=== PATIENT | male | born 1995 | race Hispanic/Latino ===

== ENCOUNTER 2024-02-01 06:58 | Observation (INO) | payer BC, SELFPAY ==
--- NOTE | 2024-02-01 08:01 | RAD REPORT ---
EXAM DESCRIPTION: CT - Thorax W/ Con CLINICAL HISTORY: Chest pain TRAUMA COMPARISON: No comparisons FINDINGS: The lungs are clear. No pleural thickening or pleural effusion. No pneumothorax. No axillary, mediastinal or hilar adenopathy. There is slight lucency in widening of the left first rib costosternal junction relative to the right this could indicate traumatic injury to this location. There is a thin transverse lucency seen invol ving the inferior sternal body (image 91/99) compatible with a nondisplaced fracture. Hepatic steatosis. All CT scans are performed using dose optimization technique as appropriate and may include automated exposure control or mA/KV adjustment according to patient size. IMPRESSION: Transverse nondisplaced fracture of the inferior body of the sternum. Slight widening with vertical lucency at the left first costovertebral junction may likely trauma rel ated injury.
--- NOTE | 2024-02-01 09:25 | EDPHYS ---
Physician Documentation [facility] Name: Erick Ryan Jr Age: 28 yrs Sex: Male : 1995 Arrival Date: 02/01/2024 Time: 06:58 Bed 13 Private MD: ED Physician Shaheed Dick HPI: 01/31 07:40 This 28 yrs old Male presents to ER via Ambulatory with complaints of rt Dizziness, Shortness Of Breath. 07:40 Patient presents to the ED with pain following chest trauma. Patient states that he was rt bench pressing and he dropped the bar which weighed about 300 pounds onto his chest. repPorts pain with deep inspiration, and mild shortness of breath. Denies other injuries, acute complaints, symptoms are moderate in severity, no other aggravating or alleviating factors.. Historical: - Allergies: 07:20 No Known Allergies; vc1 - Home Meds: 07:20 None [Active]; vc1 - PMHx: 07:20 None; vc1 - Immunization history:: Adult Immunizations up to date. - Infectious Disease History:: Denies. - Social history:: Smoking status: Patient denies any tobacco usage or history of. - Family history:: not pertinent. ROS: 07:40 Constitutional: Negative for fever, chills, and weight loss, Abdomen/GI: Negative for rt abdominal pain, nausea, vomiting, diarrhea, and constipation, MS/Extremity: Negative for injury and deformity, Skin: Negative for injury, rash, and discoloration, Neuro: Negative for headache, weakness, numbness, tingling, and seizure, 07:40 Cardiovascular: Positive for chest pain, Negative for edema, 07:40 Respiratory: Positive for shortness of breath, Negative for cough, Exam: 07:40 Constitutional: This is a well developed, well nourished patient who is awake, alert, rt and in no acute distress. Head/Face: Normocephalic, atraumatic. Cardiovascular: Regular rate and rhythm with a normal S1 and S2. No gallops, murmurs, or rubs. Normal PMI, no JVD. No pulse deficits. Respiratory: Lungs have equal breath sounds bilaterally, clear to auscultation and percussion. No rales, rhonchi or wheezes noted. No increased work of breathing, no retractions or nasal flaring. Skin: Warm, dry with normal turgor. Normal color with no rashes, no lesions, and no evidence of cellulitis. MS/ Extremity: Pulses equal, no cyanosis. Neurovascular intact. Full, normal range of motion. Neuro: Awake and alert, GCS 15, oriented to person, place, time, and situation. Cranial nerves II-XII grossly intact. Motor strength 5/5 in all extremities. Sensory grossly intact. Cerebellar exam normal. Normal gait. 07:40 Chest/axilla: Tenderness without bruising to the anterior chest wall, no crepitus. 07:40 Abdomen/GI: No abdominal tenderness, distention, 08:26 ECG was reviewed by the Attending Physician. rt 14:50 ECG was reviewed by the Attending Physician. rt Vital Signs: 07:18 BP 143 / 89; Pulse 100; Resp 16; Temp 97.5; Pulse Ox 100% ; Weight 127.01 kg; Height 5 vc1 ft. 8 in. ; 07:40 BP 143 / 89; Pulse 77; Resp 18; Temp 98; Pulse Ox 98% on R/A; Weight 127.01 kg; Height ar6 5 ft. 8 in. ; Pain 6/10; 09:34 BP 148 / 78; Pulse 82; Resp 20; Pulse Ox 100% on R/A; ar6 07:40 Body Mass Index 42.57 (127.01 kg, 172.72 cm) ar6 07:40 Pain Scale: Adult ar6 MDM: 07:21 Patient medically screened. rt 11:28 Differential diagnosis: Sternal fracture, blunt cardiac injury, contusion. Data rt reviewed: vital signs, nurses notes, lab test result(s), radiologic studies. Consideration of Admission/Observation Escalation of care including admission/observation considered. Consideration of Admission/Observation Patient was admitted/placed on observation. Escalation of care including admission/observation considered. Management of patient was discussed with the following: Primary Care Provider: Discussed with cardiology, general surgery. Independent interpretation of the following test(s) in the Emergency Department CT Scan: My interpretation is Sternal fracture syndrome interpretation of CT scan images. Counseling: I had a detailed discussion with the patient and/or guardian regarding the historical points, exam findings, and any diagnostic results supporting the discharge/admit diagnosis, lab results, radiology results, the need for further work-up and treatment in the hospital. Response to treatment: the patient's symptoms have mildly improved after treatment. 01/31 08:08 Order name: Troponin High Sensitivity; Complete Time: 09:01 rt 01/31 09:16 Order name: CBC with Diff; Complete Time: 10:06 rt 01/31 09:16 Order name: CMP; Complete Time: 10:06 rt 01/31 10:11 Order name: CBC with Automated Diff EDMS 01/31 10:11 Order name: CBC with Automated Diff EDMS 01/31 10:11 Order name: Comprehensive Metabolic Panel EDMS 01/31 10:11 Order name: Comprehensive Metabolic Panel EDMS 01/31 10:11 Order name: Lipid Profile EDMS 01/31 10:11 Order name: Lipid Profile EDMS 01/31 10:11 Order name: Magnesium EDMS 01/31 10:11 Order name: Magnesium EDMS 01/31 10:11 Order name: Troponin High Sensitivity EDMS 01/31 10:11 Order name: Troponin High Sensitivity EDMS 01/31 10:11 Order name: Troponin High Sensitivity EDMS 01/31 10:11 Order name: Troponin High Sensitivity EDMS 01/31 07:26 Order name: CT Chest W/ Con; Complete Time: 08:03 rt 01/31 08:08 Order name: INCENTIVE SPIROMETRY rt 01/31 08:08 Order name: EKG; Complete Time: 08:08 rt 01/31 10:11 Order name: CONS Physician Consult EDMS 01/31 10:11 Order name: CONS Physician Consult EDMS 01/31 10:11 Order name: EKG Electrocardiogram EDMS 01/31 10:11 Order name: EKG Electrocardiogram EDWI 01/31 10:11 Order name: EKG Electrocardiogram; Complete Time: 13:20 EDMS 01/31 08:08 Order name: EKG - Nurse/Tech; Complete Time: 08:17 rt EC:26 Rate is 84 beats/min. Rhythm is regular, Normal Sinus Rhythm with No ectopy. QRS [place] rt is Normal. PA interval is normal. QRS interval is normal. QT interval is normal. No Q waves. T waves are Normal. No ST changes noted. Interpreted by me. 14:50 Rate is 92 beats/min. Rhythm is regular, Normal Sinus Rhythm with No ectopy. QRS [place] rt is Normal. PA interval is normal. QRS interval is normal. QT interval is normal. No Q waves. Interpreted by me. Administered Medications: No medications were administered Disposition Summary: 02/01/24 09:24 Hospitalization Ordered Notes: Hospitalization Status: Observation rt Provider: Jose Goldman rt Condition: Stable rt Problem: new rt Symptoms: have improved rt Bed/Room Type: Standard rt Location: Intensive Care Unit(02/01/24 19:34) Room Assignment: 6-(02/01/24 19:34) Diagnosis - Blunt cardiac injury rt - Nondisplaced sternal fracture rt Forms: - Medication Reconciliation Form rt - SBAR form rt - Leadership Thank You Letter rt Critical care time excluding procedures: 14:50 Critical care time: Bedside Care: 30 minutes, Consultation: 10 minutes. Total time: 40 rt minutes Signatures: Dispatcher [employer] EDMS Yuli Rai Kimberly RN Amanda Anderson RN RN vc1 Shaheed Dick MD MD rt Corrections: (The following items were deleted from the chart) 10:16 09:24 Telemetry/MedSurg (observation) rt bd 10:16 09:24 rt bd 10:20 10:16 Intensive Care Unit bd bd 10:20 10:16 6- bd bd 10:20 10:20 bd bd 19:34 10:20 [facility] ER HOLD bd kl 19:34 10:20 ERHOLD- bd kl
--- NOTE | 2024-02-01 09:25 | ER ---
Nurse's Notes [facility] Name: Erick Ryan Jr Age: 28 yrs Sex: Male : 1995 Arrival Date: 02/01/2024 Time: 06:58 Bed 13 Private MD: Diagnosis: Blunt cardiac injury;Nondisplaced sternal fracture Presentation: 01/31 07:18 Chief complaint: Patient states: DROPPED BENCH PRESS BAR ON SELF THIS AM, \\R\\300#. vc1 Coronavirus screen: At this time, the client does not indicate any symptoms associated with coronavirus-19. Ebola Screen: No symptoms or risks identified at this time. Initial Sepsis Screen: Does the patient meet any 2 criteria? No. Patient's initial sepsis screen is negative. Does the patient have a suspected source of infection? No. Patient's initial sepsis screen is negative. Risk Assessment: Do you want to hurt yourself or someone else? Patient reports no desire to harm self or others. Onset of symptoms was February 01, 2024 at 05:00. 07:18 Method Of Arrival: Ambulatory vc1 07:18 Acuity: PATRICIA 3 vc1 Triage Assessment: 07:20 General: Appears uncomfortable, Behavior is cooperative, appropriate for age, anxious. vc1 Pain: Complains of pain in chest. EENT: No deficits noted. Neuro: No deficits noted. Cardiovascular: No deficits noted. Respiratory: Reports shortness of breath on exertion Onset: The symptoms/episode began/occurred suddenly, the patient has mild shortness of breath. GI: No signs and/or symptoms were reported involving the gastrointestinal system. : No signs and/or symptoms were reported regarding the genitourinary system. Derm: No deficits noted. Musculoskeletal: No deficits noted. Historical: - Allergies: 07:20 No Known Allergies; vc1 - Home Meds: 07:20 None [Active]; vc1 - PMHx: 07:20 None; vc1 - Immunization history:: Adult Immunizations up to date. - Infectious Disease History:: Denies. - Social history:: Smoking status: Patient denies any tobacco usage or history of. - Family history:: not pertinent. Screenin:40 [facility] ED Fall Risk Assessment (Adult) History of falling in the last 3 months, ar6 including since admission No falls in past 3 months (0 pts) Confusion or Disorientation No (0 pts) Intoxicated or Sedated No (0 pts) Impaired Gait No (0 pts) Mobility Assist Device Used No (0 pt) Altered Elimination No (0 pt) Score/Fall Risk Level 0 - 2 = Low Risk Oriented to surroundings, Maintained a safe environment, Educated pt \\T\\ family on fall prevention, incl call for assistance when getting out of bed, Hourly rounding (assess needs \\T\\ fall precautionary measures) done. Abuse screen: Denies threats or abuse. Denies injuries from another. Nutritional screening: No deficits noted. Tuberculosis screening: No symptoms or risk factors identified. Assessment: 07:40 General: Appears in no apparent distress. uncomfortable, Behavior is calm, cooperative, ar6 appropriate for age. Pain: Complains of pain in chest Pain currently is 6 out of 10 on a pain scale. Alleviated by rest, Noted to be grimacing, guarding, moaning. Neuro: Level of Consciousness is awake, alert, obeys commands, Oriented to person, place, time, situation. Cardiovascular: Capillary refill < 3 seconds Rhythm is regular. Respiratory: Airway is patent Respiratory effort is even, weak, pt. reports, "I was lifting weights and a bar fell on me. It hurts to take a deep breath in;" physician at bedside; plan of care ongoing. GI: Abdomen is round non-distended. : No signs and/or symptoms were reported regarding the genitourinary system. EENT: Oral mucosa is moist. Derm: Skin is intact, is healthy with good turgor, Skin is dry, Skin is pink, warm \\T\\ dry. Musculoskeletal: pain to sternum. Vital Signs: 07:18 BP 143 / 89; Pulse 100; Resp 16; Temp 97.5; Pulse Ox 100% ; Weight 127.01 kg; Height 5 vc1 ft. 8 in. ; 07:40 BP 143 / 89; Pulse 77; Resp 18; Temp 98; Pulse Ox 98% on R/A; Weight 127.01 kg; Height ar6 5 ft. 8 in. ; Pain 6/10; 09:34 BP 148 / 78; Pulse 82; Resp 20; Pulse Ox 100% on R/A; ar6 07:40 Body Mass Index 42.57 (127.01 kg, 172.72 cm) ar6 07:40 Pain Scale: Adult ar6 Vitals: 07:40 Cardiac Rhythm Assessment Regular. ar6 ED Course: 06:59 Patient arrived in ED. jj6 07:00 Shaheed Dick MD is Attending Physician. rt 07:20 Vicki London, RN is Primary Nurse. ar6 07:20 Triage completed. vc1 07:20 Arm band placed on. vc1 07:40 No apparent distress. Awaiting CT Scan. ar6 07:40 Patient has correct armband on for positive identification. Placed in gown. Bed in low ar6 position. Call light in reach. Side rails up X 1. Provided Education on: plan of care. Client placed on continuous cardiac and pulse oximetry monitoring. NIBP monitoring applied. Door closed. Noise minimized. Lights dimmed. Moved to private room. Warm blanket given. 07:40 No provider procedures requiring assistance completed. Inserted saline lock: 20 gauge ar6 in right antecubital area, using aseptic technique. Blood collected. Flushed with 10 mL NS. 07:52 CT Chest W/ Con In Process Unspecified. EDMS 08:12 Troponin High Sensitivity Sent. ar6 08:13 INCENTIVE SPIROMETRY Sent. ar6 09:17 Jose Goldman is Hospitalizing Provider. rt 09:43 CMP Sent. ar6 09:43 CBC with Diff Sent. ar6 10:23 Ewa Pollack FNP-C is PHCP. snw 11:33 1133 CM met with patient at the bedside in the ED exam room. Patient identified by name ane and . Demographic sheet confirmed. Patient lives with his in [facility],. He states prior to admission, he preforms ADLs independently and without physical limitations. No HH, home oxygen, DME or other medical services, and no MPOA in place at this time. Patient states he does have insurance through [employer], he just has not received his card. Patient logged into [employer] portal and presented digital card.CM presented member ID and policy number to Patient Access for verification. states his Bee, is travelling to [facility] to transport him home upon discharge. His plan is to return home upon discharge. CM team will continue to follow and coordinate care. 1142 Dr. Silva at the bedside to discuss plan of care. 12:56 Troponin High Sensitivity Sent. ar6 19:34 Sepideh Jameson, RN is Primary Nurse. al5 20:32 Patient admitted, IV remains in place. al5 Administered Medications: No medications were administered Medication: 07:40 VIS not applicable for this client. ar6 Outcome: 09:24 Decision to Hospitalize by Provider. rt 20:32 Admitted to ICU accompanied by nurse, via stretcher, room ICU 6, on monitor, with al5 chart, Other per AOC, take patient upstairs immediately and give bedside report. 20:32 Condition: stable 20:32 Instructed on the need for admit, 20:36 Patient left the ED. al5 Signatures: Dispatcher [employer] EDMS Ewa Pollack, BI MANAGER-C BI MANAGER-Csnw Dana Castro jj6 Amanda Jenkins RN RN vc1 Shaheed Dick MD MD rt Sepideh Jameson RN RN al5 Vicki London RN RN ar6 Gillian Kennedy RN RN ane Corrections: (The following items were deleted from the chart) 18:41 11:33 1133 CM met with patient at the bedside in the ED exam room. Patient identified ane by name and . Demographic sheet confirmed. Patient lives with his in [facility],. He states prior to admission, he preforms ADLs independently and without physical limitations. No HH, home oxygen, DME or other medical services, and no MPOA in place at this time. Patient states he does have insurance through [employer], he just has not received his card. Patient logged into [employer] portal and presented digital card.CM presented member ID and policy number to Patient Access for verification. states his Bee, is travelling to [facility] to transport him home upon discharge. His plan is to return home upon discharge. CM team will continue to follow and coordinate care. 1142 Dr. Silva at the bedside to discuss plan of care. ane
[2024-02-01 09:50] LABS: Absolute Basophils 0.1 K/uL (0-0.5); Absolute Eosinophils 0.1 K/uL (0-0.5); Absolute Lymphocytes (CBC) 1.2 K/uL (0.7-4.9); Absolute Monocytes 0.7 K/uL (0.1-1.3); Absolute Neutrophil 7.4 K/uL (1.8-8.0); Basophils % 0.5 % (0-1.3); Eosinophils % 0.8 % (0-4.4); Hematocrit 42.2 % (39.6-49.0); Lymphocytes % 13.1 % (15.3-44.8); MCH 30.4 pg (27.0-35.0); MCHC 33.1 g/dL (32.0-36.0); MCV 91.6 fL (80-100); MPV 9.8 fL (7.6-11.3); Monocytes % 7.7 % (3.3-12.3); Neutrophils % 77.9 % (41.7-73.7); Platelets 240 thou/uL (152-406); Red Cell Distribution Width 13.4 % (12.1-15.2)
[2024-02-01 10:05] LABS: Anion Gap 8.1 mEq/L (5.0-15.0); Bilirubin Total 0.5 mg/dL (0.2-1.0); Globulin 3.9 g/dL (2.3-3.5); Potassium 4.1 mEq/L (3.5-5.1); Protein, Total 7.9 g/dL (6.4-8.2)
--- NOTE | 2024-02-01 10:20 | P.HP ---
Certification for Inpatient Patient admitted to: Observation With expected LOS: <2 Midnights Patient will require the following post-hospital care: None Practitioner: I am a practitioner with admitting privileges, knowledge of patient current condition, hospital course, and medical plan of care. Services: Services provided to patient in accordance with Admission requirements found in Title 42 Section 412.3 of the Code of Federal Regulations Patient History Date of Service: 02/01/24 Reason for admission: fx of sternum, cardiac contusion History of Present Illness: Mr. Ryan is a 28-year-old male who denies past medical history. He was bench pressing this morning (greater than 300 pound weight) when his left hand felt a little numb and he dropped the bar onto his chest. Patient states it did cause pain and a little shortness of breath but he didn't think much of it and got dressed for work. He had increased pain in his chest and transit to work so presented to the emergency department. Mr. Ryan stable vital signs, EKG, traumatic chest pain, elevated troponin. Admitted to ICU for further evaluation and treatment with consult to Dr. Silva and Dr. Delgado. Labs: Troponin 108.3 Imaging: "Transverse nondisplaced fracture of the inferior body of the sternum. Slight widening with vertical lucency at the left first costovertebral junction may likely be trauma related injury." EKG: Normal sinus rhythm at 84 without ectopy Allergies No Known Allergies Allergy (Unverified 02/01/24 10:12) Home medications list reviewed: Yes (No home medications) Home Medications: NK [No Home Meds] 02/01/24 - Past Medical/Surgical History Has patient received pneumonia vaccine in the past: No Diabetic: No Past Medical History: Patient denies medical history Past Surgical History: Patient denies surgical history Psychosocial/ Personal History: Lives at home. Independent - Family History Family History: Reviewed- Non-Contributory - Social History Smoking Status: Never smoker Alcohol use: Yes CD- Drugs: No Caffeine use: Yes Place of Residence: Home Review of Systems 10-point ROS is otherwise unremarkable General: As per HPI Cardiovascular: Chest Pain, As per HPI Physical Examination - Vital Signs Blood Pressure: 148/78 Pulse: 82 Respirations: 18 Pulse Ox (%): 100 - Physical Exam General: Alert, In no apparent distress HEENT: Atraumatic, Normocephalic Neck: Supple Respiratory: Clear to auscultation bilaterally Cardiovascular: No edema, Normal pulses, Regular rate/rhythm Capillary refill: <2 Seconds Gastrointestinal: Normal bowel sounds Musculoskeletal: No clubbing, No swelling, Other (tender over sternum and left anterior costal margins) Integumentary: No rashes, No breakdown Neurological: Normal speech, Normal tone, Normal affect Lymphatics: No axilla or inguinal lymphadenopathy External genitalia: Deferred Rectal: Deferred - Studies Laboratory Data (last 24 hrs) 02/01/24 02/01/24 09:43 09:43 WBC 9.50 Hgb 14.0 Hct 42.2 Plt Count 240 Sodium 137 Potassium 4.1 BUN 11 Creatinine 0.98 Glucose 103 Total Bilirubin 0.5 AST 30 ALT 64 H Alkaline Phosphatase 79 Assessment and Plan - Plan Assessment and plan Traumatic chest pain Elevated troponin -Admit to ICU -Consult Dr. Silva -Consult Dr. Delgado -Serial cardiac enzymes and EKGs, repeat CT -ECHO with Cardiology direction -Monitor and trend VS, pain, symptoms -Pain control -Oxygen supplementation as needed DVT ppx SCD Full code LOS 2-3 days Discharge Plan: Home Plan to discharge in: 24 Hours - Advance Directives Does patient have a Living Will: No Does patient have a Durable POA for Healthcare: No - Code Status/Comfort Care Code Status Assessed: Yes (Full)
[2024-02-01] MEDS: NA CHLORIDE 0.9% 1,000 ML IV SCH (10:39)
[2024-02-01] MEDS ORDERED: NA CHLORIDE 0.9% 1,000 ML ONE (10:40)
[2024-02-01] MEDS ORDERED: HYDROCODONE/APAP 7.5/325 MG TAB ONE (11:36)
[2024-02-01] MEDS: HYDROCODONE/APAP 7.5/325 MG TAB PO PRN (11:37)
--- NOTE | 2024-02-01 11:50 | P.CNS ---
Date of Consult: 02/01/24 Chief Complaint: fx of sternum, cardiac contusion History of Present Illness: Patient with no significant PMH presented with blunt chest trauma while he was lifting weight today, report mid central chest pain when he moves, denies SOB, no palpitations, no syncope. Allergies No Known Allergies Allergy (Unverified 02/01/24 10:12) Home medications list reviewed: Yes Home Medications: NK [No Home Meds] 02/01/24 - Past Medical/Surgical History Diabetic: No Psychosocial/ Personal History: Lives at home. Independent - Social History Alcohol use: Yes CD- Drugs: No Caffeine use: Yes Place of Residence: Home Review of Systems 10-point ROS is otherwise unremarkable Physical Examination Temp Pulse Resp BP Pulse Ox 82 20 148/78 H 99 02/01/24 10:27 02/01/24 11:37 02/01/24 10:27 02/01/24 11:37 General: Alert, In no apparent distress HEENT: Atraumatic, PERRLA, Mucous membr. moist/pink, EOMI, Sclerae nonicteric Neck: Supple, 2+ carotid pulse no bruit, No LAD, Without JVD or thyroid abnormality Respiratory: Clear to auscultation bilaterally, Normal air movement Cardiovascular: Regular rate/rhythm, Normal S1 S2 Gastrointestinal: Normal bowel sounds, No tenderness Musculoskeletal: No tenderness Integumentary: No rashes Neurological: Normal gait, Normal speech, Normal tone, Normal affect Lymphatics: No axilla or inguinal lymphadenopathy Laboratory Data (last 24 hrs) 02/01/24 02/01/24 09:43 09:43 WBC 9.50 Hgb 14.0 Hct 42.2 Plt Count 240 Sodium 137 Potassium 4.1 BUN 11 Creatinine 0.98 Glucose 103 Total Bilirubin 0.5 AST 30 ALT 64 H Alkaline Phosphatase 79 - Problems (1) Cardiac contusion Current Visit: Yes Status: Acute Plan: most likely mild with mild leak in troponin, patient is hemodynaimcally stable, CT scan did not show any displaced rib fractures. - get echo - continue to trend cardiac enzymes until peak and down trending - continue to monitor vitals closely
[2024-02-01] MEDS: IPRATROPIUM BROM 0.5MG/2.5ML NEB SCH (13:00)
[2024-02-01] MEDS ORDERED: IPRATROPIUM BROM 0.5MG/2.5ML ONE ×2 (13:02→19:32)
[2024-02-01] MEDS ORDERED: ARFORMOTEROL TARTRATE 15 MCG/2 ML VIAL.NEB ONE (19:31)
[2024-02-01] MEDS: ARFORMOTEROL TARTRATE 15 MCG/2 ML VIAL.NEB NEB SCH (19:40)
[2024-02-02 04:53] VITALS: TEMP 97.3
[2024-02-02 05:01] VITALS: BMI 40.2
[2024-02-02 05:31] LABS: Absolute Eosinophils 0.2 K/uL (0-0.5); Absolute Lymphocytes (CBC) 1.6 K/uL (0.7-4.9); Absolute Monocytes 0.8 K/uL (0.1-1.3); Basophils % 0.4 % (0-1.3); Eosinophils % 2.5 % (0-4.4); Hematocrit 38.9 % (39.6-49.0); Hemoglobin 12.9 g/dL (13.6-17.9); Lymphocytes % 24.9 % (15.3-44.8); MCH 30.6 pg (27.0-35.0); MCHC 33.2 g/dL (32.0-36.0); MCV 91.9 fL (80-100); MPV 9.9 fL (7.6-11.3); Monocytes % 12.2 % (3.3-12.3); Platelets 215 thou/uL (152-406); RBC Red Blood Cell Count 4.23 M/uL (4.33-5.43); Red Cell Distribution Width 13.2 % (12.1-15.2)
[2024-02-02 05:57] LABS: Albumin 3.4 g/dL (3.4-5.0); Albumin/Globulin Ratio 0.9 (1.1-1.8); Bilirubin Total 0.5 mg/dL (0.2-1.0); Globulin 3.6 g/dL (2.3-3.5); Magnesium 2.2 mg/dL (1.6-2.4)
[2024-02-02 06:04] LABS: Troponin High Sensitivity 98.8 pg/mL (<58.9)
--- NOTE | 2024-02-02 06:51 | ECHO ---
HEIGHT: 6 ft 0 in WEIGHT: 296 lb 12.8 oz DATE OF STUDY: 02/01/[address]: Bailey Garcia NP 2-DIMENSIONAL: YES M.MODE: YES DOPPLER: YES COLOR FLOW: YES TDS: PORTABLE: YES DEFINITY: BUBBLE STUDY: DIAGNOSIS: STERNAL FRACTURE, CHEST CONTUSION CARDIAC HISTORY: CATHERIZATION: NO SURGERY: NO PROSTHETIC VALVE: NO PACEMAKER: NO MEASUREMENTS (cm) DIASTOLIC (NORMALS) SYSTOLIC (NORMALS) IVSd 1.1 (0.6-1.2) LA Diam 3.7 (1.9-4.0) LVEF 60-65% LVIDd 5.3 (3.5-5.7) LVIDs 3.4 (2.0-3.5) %FS 36% LVPWd 1.2 (0.6-1.2) Ao Diam 3.5 (2.0-3.7) 2 DIMENSIONAL ASSESSMENT: RIGHT ATRIUM: NORMAL LEFT ATRIUM: NORMAL RIGHT VENTRICLE: NORMAL LEFT VENTRICLE: NORMAL TRICUSPID VALVE: NORMAL MITRAL VALVE: NORMAL PULMONIC VALVE: NORMAL AORTIC VALVE: NORMAL PERICARDIAL EFFUSION: NONE AORTIC ROOT: NORMAL LEFT VENTRICULAR WALL MOTION: NORMAL DOPPLER/COLOR FLOW: NORMAL COMMENTS: 1. NORMAL LEFT VENTRICULAR EJECTION FRACTION 60-65% 2. NORMAL WALL MOTION 3. NORMAL DIASTOLIC FUNCTION 4. NORMAL ECHOCARDIOGRAM TECHNOLOGIST: SARAN ANDREA
[2024-02-02 08:03] VITALS: O2SAT 96
[2024-02-02 09:30] VITALS: BP 143/92
--- NOTE | 2024-02-02 12:10 | P.DS ---
Admission Date: 02/01/24 Discharge Date: 02/02/24 Disposition: ROUTINE DISCHARGE Discharge Condition: GOOD Reason for Admission: fx of sternum, cardiac contusion Consultations: CardiologyDr. Silva Procedures: Echocardiogram Brief History of Present Illness: Mr. Ryan is a 28-year-old male who denies past medical history. He was bench pressing this morning (greater than 300 pound weight) when his left hand felt a little numb and he dropped the bar onto his chest. Hospital Course: Problem list Sternal fracture Cardiac contusion Patient was admitted to the hospital after dropping a large weight on his chest resulting in a sternal fracture. His troponin was mildly elevated but trended down. He was seen by cardiology who recommended echo be obtained which was complete and normal. Pain well controlled as long there is not much movement. Discussed sternal fracture precautions with patient, stable for discharge today and follow up with primary care in 1-2 weeks. Vital Signs/Physical Exam: Temp Pulse Resp BP Pulse Ox 97.3 F 94 H 16 143/92 H 96 02/02/24 04:00 02/02/24 08:00 02/02/24 08:00 02/02/24 08:00 02/02/24 08:00 General: Alert, In no apparent distress, Oriented x3 HEENT: Atraumatic, PERRLA, EOMI Neck: Supple, JVD not distended Respiratory: Clear to auscultation bilaterally, Normal air movement Cardiovascular: Regular rate/rhythm, Normal S1 S2 Gastrointestinal: Normal bowel sounds, No tenderness Musculoskeletal: No tenderness Integumentary: No rashes Neurological: Normal speech, Normal tone, Normal affect Lymphatics: No axilla or inguinal lymphadenopathy Laboratory Data at Discharge: WBC 6.60 thou/uL (4.3-10.9) 02/02/24 05:05 Hgb 12.9 g/dL (13.6-17.9) L 02/02/24 05:05 Hct 38.9 % (39.6-49.0) L 02/02/24 05:05 Plt Count 215 thou/uL (152-406) 02/02/24 05:05 Sodium 139 mEq/L (136-145) 02/02/24 05:05 Potassium 4.0 mEq/L (3.5-5.1) 02/02/24 05:05 BUN 11 mg/dL (7-18) 02/02/24 05:05 Creatinine 0.91 mg/dL (0.70-1.30) 02/02/24 05:05 Glucose 103 mg/dL (74-106) 02/02/24 05:05 Magnesium 2.2 mg/dL (1.6-2.4) 02/02/24 05:05 Total Bilirubin 0.5 mg/dL (0.2-1.0) 02/02/24 05:05 AST 16 U/L (15-37) 02/02/24 05:05 ALT 51 U/L (16-61) 02/02/24 05:05 Alkaline Phosphatase 73 U/L (45-117) 02/02/24 05:05 Triglycerides 135 mg/dL (<150) 02/02/24 05:05 Cholesterol 159 mg/dL (<200) 02/02/24 05:05 HDL Cholesterol 41 mg/dL (40-60) 02/02/24 05:05 Cholesterol/HDL Ratio 3.88 02/02/24 05:05 Home Medications: Hydrocodone 5/APAP 325 [[place] 5/325*] 1 tab PO Q8H PRN #10 tab 02/02/24 New Medications: Hydrocodone 5/APAP 325 [[place] 5/325*] 1 tab PO Q8H PRN #10 tab PRN Reason: Pain Physician Discharge Instructions: Follow up with a Family Medicine Physician of your choice: BLUE DILL MD [address] [facility] [facility], [address] [place], [place] [address] ACCEPTING NEW PATIENTS! LESLIE LUNA MD [address], [address] [place], [place] [address] ACCEPTING NEW PATIENTS! SAMANTHA-JOAN CARPENTER, DO [address] [place], [place] [id number] LATHA YUN MD [address], [address] [place], [place] [address] SHUN SIMON MD [address], [address] [place], [place] [id number] TOYIN SPAIN MD [address], [place] [address] [place] [address] LATESHA SYKES MD [address] [place] [address] HARVINDER CASANOVA [facility] [address], [address] [place] [address] DORINA GODINEZ MD [address], [address] [place] [address] MILES GODINEZ APRN [facility] [address], [address] [place] [address] [facility] DO RICH [address], [address] [place] [address] Follow up with an Internal Medicine Physician of your choice: LESLIE LUNA MD [address], [address] [place] [address] ACCEPTING NEW PATIENTS! YUNIOR BIRCH MD [address] [facility], [place] [address] NICK SYKES MD [address] [place] [address] CHARLENE ALVARENGA MD [address] [facility], [facility] [place] [address] CHARAN HALL MD [address] [place] [address] Diet:RegularPROBLEM: (list out Acute Problems for the Current visit) GOAL: Clear understanding of disease process INSTRUCTIONS:Patient was admitted to the hospital after dropping a large weight on his chest resulting in a sternal fracture. His troponin was mildly elevated but trended down. He was seen by cardiology who recommended echo be obtained which was complete and normal. Pain well controlled as long there is not much movement. Discussed sternal fracture precautions with patient, stable for discharge today and follow up with primary care in 1-2 weeks. Diet: Regular Activity: No lifting more than 10 lbs DME DME: Date Ordered: Name of Company: [employer] Services Needed: None Name of Company: Date or Referral: IMMUNIZATION Influenza Vaccine Indicated: Influenza Vaccine Given: Date Given: Pneumonia Vaccine Indicated: No Pneumonia Vaccine Given: Date Given: Activity:No lifting more than 10 lbs PHYSICIAN'S DISCHARGE INSTRUCTIONS Diet: Regular Activity: No lifting more than 10 lbs Followup: NONE,NONE [Primary Care Provider] - 1-2 Weeks Time spent managing pt's care (in minutes): 36
--- NOTE | 2024-02-02 16:56 | EKG ---
Test Date: 2024-02-01 Test Time: 13:16:04 Aircraft Dispatcher: MAYELA MEASUREMENT RESULTS: Intervals: Rate: 92 TX: 146 QRSD: 94 QT: 360 QTc: 445 [place]: P: 61 TX: 146 QRS: 94 T: -24 INTERPRETIVE STATEMENTS: Normal sinus rhythm Nonspecific ST and T wave abnormality Abnormal ECG Compared to ECG 02/01/2024 08:21:42 ST (T wave) deviation now present Electronically Signed On 02-02-24 16:53:14 CDT by Dre Altamirano
--- NOTE | 2024-02-02 16:57 | EKG ---
Test Date: 2024-02-01 Test Time: 08:21:42 Car Rider: SKYLAR MEASUREMENT RESULTS: Intervals: Rate: 84 VA: 146 QRSD: 92 QT: 370 QTc: 437 [place]: P: 70 VA: 146 QRS: 97 T: -9 INTERPRETIVE STATEMENTS: Normal sinus rhythm Normal ECG No previous ECG available for comparison Electronically Signed On 02-02-24 16:53:27 CDT by Dre Altamirano
== END 2024-02-02 10:30 | disposition home or self-care (01) ==
LOC: ER 06:58 → ERHOLD 10:01 → 3RD-ICU 20:12
PROVIDERS: ADMIT Internal Medicine; ATTEND Hospitalist
DX: S22.20XA Unspecified fracture of sternum, initial encounter for closed fracture (principal); S28.0XXA Crushed chest, initial encounter; R79.89 Other specified abnormal findings of blood chemistry; Y93.B3 Activity, free weights; Y92.89 Other specified places as the place of occurrence of the external cause; Y99.8 Other external cause status
CPT/HCPCS: 93005 ×2; 93306; 85025 ×2; 36415; 83735; 82550 ×2; 80061; 84484 ×4; 80053 ×2; 71260; 94640 ×4; Q9967; J7644 ×4; J7605 ×2; J7030 ×3; 99285; G0378